=== PATIENT | male | born 1985 | race Two or more races ===

== ENCOUNTER 2016-11-17 19:09 | Emergency (ER) | payer MEDICAID ==
[~2016-11-17] VITALS: Ht 157.5 cm; Wt 70.0 kg
[2016-11-17 19:11] VITALS: Ht 157.5 cm; Wt 70.0 kg
[2016-11-17] MEDS ORDERED: AMO500 PO (19:42)
[2016-11-17] MEDS ORDERED: LIDO20SO19 MM (19:43)
[2016-11-17] MEDS ORDERED: IBUP-1542 PO (19:43)
--- NOTE | 2016-11-17 21:15 | ERD ---
ER Documentation Chief Complaint Date/Time DATE: 11/17/16 TIME: 21:13 Chief Complaint sore throat, headache, fever HPI This patient is a 31-year-old male with no significant medical history presenting to the emergency department for moderate sore throat and tactile fevers ongoing intermittently for the past 4 days. The patient took Advil at home with no relief of symptoms. There are no other symptoms to report at this time. ROS All systems reviewed and are negative except as per history of present illness. Medications Home Meds Active Scripts Ibuprofen* (Motrin*) 600 Mg Tab, 600 MG PO Q6, #30 TAB Prov:SABRINA GARRISON PA-C 11/17/16 Lidocaine (Lidocaine Viscous) 100 Ml Soln, 10 ML MM prn, #1 BOTTLE Prov:SABRINA GARRISON PA-C 11/17/16 Amoxicillin* (Amoxicillin*) 500 Mg Cap, 500 MG PO BID for 10 Days, #20 CAP Prov:SABRINA GARRISON PA-C 11/17/16 Allergies Allergies: Coded Allergies: No Known Allergy (Unverified , 11/17/16) PMhx/Soc History of Surgery: No (NO MEDICAL PROBLEMS OR SURGICAL HISTORY) Hx Alcohol Use: No Hx Substance Use: No Hx Tobacco Use: No FmHx Noncontributory for chief complaint Physical Exam Vitals Vital Signs Date Time Temp Pulse Resp B/P Pulse Ox O2 Delivery O2 Flow Rate FiO2 11/17/16 19:11 98.2 88 20 139/77 100 Physical Exam INITIAL VITAL SIGNS: Reviewed by me. GENERAL: Alert and interactive. No acute distress. HEAD: Head is normocephalic and atraumatic. EYES: EOMI. No scleral icterus. No conjunctival injection. ENT: The tonsils are enlarged bilaterally. The tonsils are erythematous bilaterally. There is scant exudate present bilaterally. There is no obstruction of the airway. There is no uvular shift. NECK: Supple. Full range of motion. RESPIRATORY: Normal respiratory effort. Clear breath sounds bilaterally. No wheezing, rales, or rhonchi. CV: Regular rate and rhythm. Normal S1 S2. No S3 or S4. No murmurs. ABDOMEN: Soft, non-distended, non-tender. No guarding. No rebound. No masses. EXTREMITIES: No deformity. SKIN: Warm and dry. NEUROLOGIC: Alert and oriented x 4. Speech is normal. Moves all extremities equally. No motor or sensory deficits noted. Procedures/MDM 31-year-old female presents secondary to complaints of tactile fevers and sore throat. On physical examination the patient's vitals are within normal limits. Examination of the throat reveals erythema and scant exudate. There is no uvular shift. The airway is clear. I highly doubt any peritonsillar abscess, retropharyngeal abscess, septicemia, deep tissue infection, or other emergent conditions at this time. I believe the patient is stable for outpatient management with prescriptions for amoxicillin, Tylenol, and viscous lidocaine to be used only as needed for severe throat pain. The patient understands the diagnosis and treatment plan. The patient's questions and concerns were addressed. The patient was advised to return to the emergency department immediately with any new or worsening symptoms and he understands these instructions. The patient was hemodynamically stable prior to discharge. Departure Diagnosis: Primary Impression: Tonsillitis Additional Impression: Sore throat Condition: Fair Patient Instructions: Self-Care for Sore Throats Ref[facility] Usted se butler hecho un examen mdico de control que le indica que no est en williams condicin que requiera tratamiento urgente en el Departamento de Emergencia. Un estudio ms profundo y el tratamiento de collins condicin pueden esperar sin ningn riesgo hasta que usted sea atendida/o en el consultorio de collins mdico o williams cl ekta. Es responsabilidad suya arreglar williams caitie para el seguimiento del nick. MANEJO DE CONDICIONES NO URGENTES EN EL FUTURO 1) Si usted tiene un mdico de atencin primaria: Usted debera llamar a collins mdico de atencin primaria antes de venir al departamento de emergencia. Despus de las horas de consultorio, collins doctor o collins asociado/a est disponible por telfono. El mdico o enfermero de ra en el servicio telefnico puede asesorarle por alex medio para atender el problema, o nick contrario se puede programar williams caitie. 2) Si usted no tiene un mdico de atencin primaria: Llame al mdico o clnica de referencia que aparece abajo eleanor las horas de consultorio para hacer williams caitie para que le vean. CLINICAS: [facility] [phone] [facility] [phone] [facility] [phone] [facility] [phone] [place] [phone] [facility] [phone] [address] Additional Instructions: No mas mejor en 2-3 gallegos, regresar. Mas peor en 24 horas, regresear rapidamente. Ir a doctor primario in 5-7 gallegos. Usar instrucciones cuando estevan medicamento. SABRINA GARRISON PA-C Nov 17, 2016 21:15
== END 2016-11-17 19:44 | disposition home or self-care (01) ==
LOC: E/R 19:09
DX: J03.90 Acute tonsillitis, unspecified (principal)
CPT/HCPCS: 99283